=== PATIENT | female | born 1995 | race Hispanic/Latino ===

== ENCOUNTER 2017-09-20 23:27 | Emergency (ER) | payer BC, SELFPAY ==
[2017-09-20] MEDS ORDERED: Amoxicillin/Potassium Clav 875 MG TAB ONE (23:54)
[2017-09-20] MEDS ORDERED: Ibuprofen 800 MG TAB ONE (23:55)
== END 2017-09-21 00:01 | disposition home or self-care (01) ==
LOC: NAV ERS 23:27
DX: L04.9 Acute lymphadenitis, unspecified (principal)
CPT/HCPCS: 87081; 87430; 99283